=== PATIENT | male | born 1950 | race Caucasian/White ===

== ENCOUNTER → 2021-04-13 | Outpatient (CLI) | payer OTHER ==
[~2021-04-13] VITALS: Ht 175.3 cm; Wt 86.2 kg
[~2021-04-13] MED LIST: ARICEPT10 M1 PO; DESYREL150 MG PO; FOLIC ACID1 MG PO; LEVO-T25 MCG PO; LEXAPRO20 MG PO; LUNESTA3 MG PO; MEMANTINE HCL E14 MG PO; METHYLPHENIDATE20 M1 PO; NORVASC10 MG PO; POTASSIUM99 M1 PO; REQUIP 1 MG TABL1 M1 PO; SUPER THERAVIT1 EACH PO; TRAMADOL HCL100 M1 PO; TYLENOL PM EX-1 EACH PO; VIAGRA100 MG PO; VITAMIN B COMP1 EACH PO
--- NOTE | ~2021-04-13 | HPC ---
[facility] [place] [address] PAIN MANAGEMENT CONSULTATION Name: BOO HARDY Room #: REG [facility]..#: [id number] Admission: 04/13/21 Attend Phys: Mikael Sharma DO Discharge: Date of : 50 Report #: [id number] THIS REPORT FOR: cc: Jefferson Lovelace MD, James A. MD Johnson, James E. DO ~ DOC #: [id number] cc: MD Mikael Davis, DATE OF SERVICE: 04/13/2021 REFERRING PHYSICIAN: Dr. Jefferson Lovelace. PRIMARY CARE PHYSICIAN: Dr. Mikael Dove. CHIEF COMPLAINT: Low back pain, left lower extremity pain with paresthesias. HISTORY OF PRESENT ILLNESS: As you know, the patient is a 70-year-old male who reports acute onset of low back pain, left lower extremity pain and paresthesia that began on 02/27/2021. The patient reports he has had longstanding back issues undergoing partial diskectomy in [place] about 15-17 years ago. The patient states that on 02/27/2021, he awoke with intense left hip pain. He locates the pain directly over the left hip, buttock and anterior thigh area. He states his pain has improved significantly with lying down, but does note exacerbation of symptoms when lying on his left side. When he is lying on his back his pain is completely resolved. He has some muscle cramping in the lower extremities, which prompted his primary care physician to send the patient on to see neurosurgery. The patient was seen by neurosurgery, Dr. Jefferson Lovelace and advised that surgical options may be necessary, but requested a more conservative treatment approach initially. The patient was subsequently referred to our clinic to discuss treatment options. The patient reports today pain is periodic and intermittent. He describes the pain as more of a cramping, aching, sharp, stabbing sensation. He places current pain score 3/10, daily average at 6/10, worst pain has been is 8/10. The patient states that sitting and getting up exacerbate symptoms consistent with a left hip pathology. He states that lying on his back, rest, relaxation, heat and cold compresses tend to improve pain. He has been referred to our service to discuss treatment options for suspected combination of lumbar radiculopathy had intrinsic hip pathology. PAST MEDICAL HISTORY: 1. ADHD. 2. Depression. 3. Hyperglycemia. 4. Hypertension. [address] [address] PAIN MANAGEMENT CONSULTATION Name: BOO HARDY Room #: REG CLI Justin#: [id number] Admission: 04/13/21 Attend Phys: Mikael Sharma DO Discharge: Date of : 50 Report #: [id number] 5. Hypogonadism. 6. Insomnia. 7. Prediabetes. 8. Ulnar nerve palsy. 9. Chronic liver disease. 10. Thyroid dysfunction. 11. Obesity. 12. Early dementia. 13. Peripheral neuropathy. 14. History of stroke. PAST SURGICAL HISTORY: 1. L4-L5 partial diskectomy. 2. Ulnar nerve transposition. 3. Cholecystectomy. SOCIAL HISTORY: The patient denies tobacco, alcohol or IV illicit drug use. 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 He is not in litigation in regards to pain. He is unaccompanied at today's visit. REVIEW OF SYSTEMS: Positive for wearing corrective eyewear, hearing loss with tinnitus, changes in bowel movements, constipation, interspersed with loose bowels, nocturia, numbness and tingling sensations, history of stroke with no significant residual deficits, nervousness, depression, insomnia. All other review of systems negative per 12-point review of systems other than those listed in history of present illness. Pain impact score 36/70, moderate interference of daily activities secondary to pain. ALLERGIES: LISINOPRIL. CURRENT MEDICATIONS: Tramadol 100 mg 4 times a day, Viagra 100 mg p.r.n., Lunesta 3 mg p.o. at bedtime, trazodone 150 mg p.o. at bedtime, methylphenidate 20 mg 3 times a day, multivitamin one tab per day, potassium gluconate 99 mg per day, acetaminophen p.r.n., levothyroxine 25 mcg per day, Lexapro 20 mg once a day, benazepril 10 mg once a day, amlodipine 10 mg once a day, ropinirole 1 mg p.o. at bedtime, Namenda 14 mg per day, folic acid 1 mg per day, vitamin B complex one tab per day. IMAGING: MRI of the lumbar spine obtained 04/01/2021 shows mild circumferential disk bulge at L4-L5, most marked posterolaterally to the left. Small changes of the lateral recess at the L4-L5 level with extruded fragment. Synovial cyst projecting into the spinal canal left L4-L5 zygapophyseal joint. There is a left L4-L5 lateral recess, mild broad-based L2-L3 disk bulge postsurgical [facility] [address] [place] [address] PAIN MANAGEMENT CONSULTATION Name: BOO HARDY Room #: REG [facility] Anderson#: [id number] Admission: 04/13/21 Attend Phys: Mikael Sharma DO Discharge: Date of : 50 Report #: [id number] changes noted. PQRS: The patient has known arthritic changes of the lumbar spine. No rheumatoid arthritis. Placing pain intensity at 3/10, not a fall risk, has not had a fall in last 3 months. He is not on blood thinners, but is treated for hypertension. He is not on chronic opioids, but does have moderate to high opioid risk factor based on our assessment tool. Pain impact is 36/70, moderate interference of daily activities secondary to pain. PHYSICAL EXAMINATION: VITAL SIGNS: Blood pressure 134/103, pulse 105, respiratory rate 20, unlabored. The patient 97% on room air. Height 5 feet 9 inches tall, weight 190 pounds, BMI calculated 28.0. GENERAL: Well-developed, well-nourished, well-hydrated 70-year-old male appearing stated age, pain is rated anywhere from 3-5/10 depending on activity. HEENT: Normocephalic, atraumatic. Pupils equal, round and responsive. The patient deemed a good historian. He is wearing a mask in compliance with COVID-19 regulations. LUNGS: Appear clear. No wheeze or rhonchi are appreciable rales. CARDIOVASCULAR: Appears regular. EXTREMITIES: Show no clubbing, no cyanosis and no appreciable edema. MUSCULOSKELETAL: Lower extremity strength appears symmetrical 5/5 intact to light touch from L1 through S2 dermatomes. Seated straight leg raising negative. Supine straight leg raising positive on the right. Fabere's test is negative. Modified Gaenslen's positive for axial back pain. Ankle clonus negative. Babinski is negative. Gait mildly antalgic favoring left lower extremity over right. Deep tendon reflexes appear symmetrical, but diminished bilaterally at patella and Achilles. ASSESSMENT: 1. Symptomatic lumbar radiculopathy. 2. Displacement of lumbar intervertebral disk with radiculopathy. 3. 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 4. Lumbar degeneration. 5. Facet arthropathy of the lumbar spine. 6. Chronic intractable pain. PLAN: 1. Based on today's physical exam, the history the patient has provided, the description the patient uses in regards to pain as well as the location of symptoms, the likely source of the patient's pain is lumbar radiculopathy. The patient has been referred to our clinic by his neurosurgeon to trial conservative treatment options before looking toward surgical options if necessary. The patient is agreeable with that plan. We discussed with the patient today, the treatment options, we have available to treat lumbar radiculopathy. We discussed the following with the patient today. [address] [address] PAIN MANAGEMENT CONSULTATION Name: BOO HARDY Room #: REG CL Justin#: [id number] Admission: 04/13/21 Attend Phys: Mikael Sharma DO Discharge: Date of : 50 Report #: [id number] We discussed physical therapy, stretching exercises and traction techniques as a treatment course. We discussed medication management utilizing a consistent baseline neuropathic pain medications such as amitriptyline, nortriptyline, Cymbalta, Lyrica or gabapentin. We discussed lumbar epidural injections under fluoroscopic guidance for which the patient was referred to our clinic. We also discussed surgical options including dorsal column stimulator and ultimately surgical decompression of the L4-L5 level. After reviewing risks and benefits of all proposed treatment options, the patient chose to move forward with a lumbar epidural injection under fluoroscopic guidance. 2. The patient was advised risks and benefits of a lumbar epidural injection. These risks include but are not necessarily limited to bleeding, bruising, infection, worsening pain, no relief of pain, also risk of temporary or permanent muscle weakness, temporary or permanent nerve damage, possible paralysis, post-dural puncture headache and . The patient states understood and wished to proceed. 3. No medication changes made at today's visit. The patient will continue current medical therapy as prior prescribed. 4. We plan to see the patient back in followup visit in one month. At that time, review the efficacy of today's epidural injection and determine next in a series of epidural injections might be recommended. 5. We wish to thank Dr. Lovelace for the referral of this patient to our clinic. We will keep you apprised of his response to treatment as we address lumbar radicular symptoms. Again, we wish to thank you for the opportunity to see the patient in consultation. PROCEDURE NOTE: DESCRIPTION OF PROCEDURE: L5-S1 left paramedian epidural steroid injection under fluoroscopic guidance. This is the first procedure of the first series that the patient is undergoing. After obtaining written consent, the patient was taken back to the fluoroscopy suite, placed in a prone position with pillow under the abdomen to decrease lumbar lordosis. The skin overlying the lumbosacral area was then prepped and draped in aseptic fashion. The L5-S1 vertebral interspace was then identified by AP fluoroscopy. The skin and subcutaneous tissue overlying the target site of injection was anesthetized with 3 mL 1% lidocaine. A 20-gauge 3-1/2 inch Tuohy needle was then advanced under fluoroscopic guidance towards the epidural space using a left paramedian approach. The epidural space was identified using loss of resistance to air technique. After negative aspiration for heme or cerebrospinal fluid, a total of 1 mL of Omnipaque was injected. A lumbar epidurogram was confirmed using both AP and lateral fluoroscopy. After negative aspiration for heme or cerebrospinal fluid, 5 mL of a solution containing 2 mL 40 mg per mL 80 mg total triamcinolone along with 3 [facility] [address] [place] [address] PAIN MANAGEMENT CONSULTATION Name: BOO HARDY Room #: REG CLI M.R.#: [id number] Admission: 04/13/21 Attend Phys: Mikael Sharma DO Discharge: Date of : 50 Report #: [id number] mL of lidocaine 1% was injected in increments. Contrast spread was noted posterior epidural space. The needle was then retracted approximately half way and needle tract flushed with 1 mL of 1% lidocaine. Needle was then removed. There were no apparent sensory or motor deficits in the lower extremity following the procedure. A sterile bandage was placed over the injection site. The heart rate, pulse, oximetry and blood pressure were continuously monitored after the procedure. There were no apparent complications. The patient tolerated the procedure well and was carefully escorted to the recovery room in stable condition. There were no apparent complications. After meeting discharge criteria, the patient was then discharged home. DO MOISES Blackmon/NORA By: [id number] Mikael Sharma DO /nt
[2021-04-13 08:48] VITALS: BP 134/103
--- NOTE | 2021-04-13 09:10 | NUR ---
Pain Clinic Assessment: 1. History of Osteoarthritis: Not Applicable History of Rheumatoid Arthritis: Not Applicable 2. Height: 5 ft. 9 in. 175.3 cm. Weight: 190.0 lb. oz. 86.184 kg. Patient's BMI: 28.0 3. Vital Signs: BP: 134/103 Pulse: 105 Resp: 20 Temp: 02 Sat: 97 ECG Mon: 4. Pain Intensity: 3 5. Fall Risk: Dizziness: N Needs help standing or walking: N Fallen in the last 3 months: N Fall risk comments: 6. Patient on Blood Thinner: None 7. History of Hypertension: Y 8. Opioid Therapy greater than 6 weeks: N Opiate Contract Signed: 9. Risk Assessment Tool Provided: 6 MODERATE RISK 10. Functional Assessment Tool: 36/70 11. Recreational Drug Use: Current within past 3 mos Drug Type: MARIJUANA Tobacco Use: Former Smoker Tobacco Type: Cigarettes Amount or Packs/day: How Many Years: Alcohol Use: No Frequency: Quant:
== END | disposition home or self-care (01) ==
LOC: PAIN 07:54
PROVIDERS: ATTEND Anesthesiology Pain Medicine
DX: M51.16 Intervertebral disc disorders with radiculopathy, lumbar region (principal); M47.27 Other spondylosis with radiculopathy, lumbosacral region; M48.061 Spinal stenosis, lumbar region without neurogenic claudication; G89.29 Other chronic pain; I10 Essential (primary) hypertension; E07.9 Disorder of thyroid, unspecified; F32.9 Major depressive disorder, single episode, unspecified; M19.90 Unspecified osteoarthritis, unspecified site; E29.1 Testicular hypofunction; G47.00 Insomnia, unspecified; K76.9 Liver disease, unspecified; E66.9 Obesity, unspecified; F03.90 Unspecified dementia, unspecified severity, without behavioral disturbance, psychotic disturbance, mood disturbance, and anxiety; G62.9 Polyneuropathy, unspecified; Z98.890 Other specified postprocedural states; Z79.899 Other long term (current) drug therapy; Z86.73 Personal history of transient ischemic attack (TIA), and cerebral infarction without residual deficits; Z90.49 Acquired absence of other specified parts of digestive tract; Z88.8 Allergy status to other drugs, medicaments and biological substances

== ENCOUNTER → 2021-05-25 | Outpatient (CLI) | payer OTHER ==
[~2021-05-25] VITALS: Ht 175.3 cm; Wt 86.5 kg
[2021-05-25 09:15] VITALS: BP 109/70
--- NOTE | 2021-05-25 09:20 | NUR ---
Pain Clinic Assessment: 1. History of Osteoarthritis: Not Applicable History of Rheumatoid Arthritis: Not Applicable 2. Height: 5 ft. 9 in. 175.3 cm. Weight: 190.6 lb. oz. 86.456 kg. Patient's BMI: 28.1 3. Vital Signs: BP: 109/70 Pulse: 107 Resp: 16 Temp: 02 Sat: 97 ECG Mon: 4. Pain Intensity: 6 5. Fall Risk: Dizziness: N Needs help standing or walking: N Fallen in the last 3 months: N Fall risk comments: 6. Patient on Blood Thinner: None 7. History of Hypertension: Y 8. Opioid Therapy greater than 6 weeks: N Opiate Contract Signed: 9. Risk Assessment Tool Provided: 6 MODERATE RISK 10. Functional Assessment Tool: 11. Recreational Drug Use: Current within past 3 mos Drug Type: marijuana Tobacco Use: Former Smoker Tobacco Type: Amount or Packs/day: How Many Years: Alcohol Use: No Frequency: Quant:
--- NOTE | 2021-05-26 08:00 | HPC ---
[facility] [place] [address] PAIN MANAGEMENT CONSULTATION Name: BOO HARDY Room #: REG [facility] M.R.#: [id number] Admission: 05/25/21 Attend Phys: Mikael Sharma DO Discharge: Date of : 50 Report #: [id number] THIS REPORT FOR: cc: Jefferson Lovelace MD, James A. MD Johnson, James E. DO ~ DOC #: [id number] cc: MD Mikael Davis, DATE OF SERVICE: 05/25/2021 CHIEF COMPLAINT: Low back pain, left lower extremity pain with paresthesias. HISTORY OF PRESENT ILLNESS: As you know, the patient is a very pleasant 70-year-old male who returns today in followup visit with pain, recurrence of 6/10. He describes the pain as intermittent cramping, aching, sharp, stabbing, numbness and tingling. Places pain again at 6/10. He states pain is exacerbated with standing, sitting and lying down, improves with repositioning. The patient underwent a lumbar epidural injection in March, which provided 80% improvement in overall pain. Unfortunately, his symptoms have reoccurred. There has been no inciting injury or trauma. The patient returns today in followup visit reporting recurrence of symptoms that have not been alleviated with changes in daily activity. He returns for the second in the series of lumbar epidural injections. ALLERGIES: LISINOPRIL. CURRENT MEDICATIONS: Tramadol 100 mg 4 times a day, Viagra 100 mg p.r.n., Lunesta 3 mg p.o. at bedtime, trazodone 150 mg p.o. at bedtime, multivitamin 1 tab per day, potassium gluconate 99 mg per day, acetaminophen p.r.n., levothyroxine 25 mcg per day, Lexapro 20 mg once a day, benazepril 10 mg once a day, amlodipine 10 mg per day, ropinirole 1 mg p.o. at bedtime, Namenda 14 mg per day, folic acid 1 mg per day, vitamin B complex 1 tab per day. SOCIAL HISTORY: The patient denies tobacco, alcohol or IV or illicit drug use. 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 He is unaccompanied at today's visit. IMAGING: No new imaging available. PQRS: The patient has known arthritic changes in lumbar spine. No rheumatoid arthritis. He is placing pain intensity today at 6/10. He is not a fall risk, has not had a fall in last 3 months. He is not on blood thinners, but is treated for hypertension. He is on chronic opioids as a moderate to high opioid addiction potential based on assessment tool. Pain impact remains 36/70, moderate interference of daily activities secondary to pain. [address] [address] PAIN MANAGEMENT CONSULTATION Name: BOO HRADY [facility] [id number] Admission: 05/25/21 Attend Phys: Mikael Sharma DO Discharge: Date of : 50 Report #: [id number] PHYSICAL EXAMINATION: VITAL SIGNS: Blood pressure 109/70, pulse is 107, respiratory rate 16 and unlabored. The patient is 97% on room air. Height 5 feet 9 inches tall, weight 190.6 pounds, BMI calculated 28.1. GENERAL: Well-developed, well-nourished, well-hydrated 70-year-old male appearing stated age, pain is rated today at 6/10. HEENT: Normocephalic, atraumatic. EXTREMITIES: Show no clubbing, no cyanosis and no edema. MUSCULOSKELETAL: Lower extremity strength remains symmetrical again today 5/5. Seated straight leg raising negative. Supine straight leg raising mildly positive on the right at about 60-degree angle. Ankle clonus negative. Babinski is negative. Gait appears normal. Muscle bulk and tone is equal and symmetrical in lower extremities. ASSESSMENT: 1. Symptomatic lumbar radiculopathy. 2. Displacement of lumbar intervertebral disk with radiculopathy. 3. 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 4. Lumbar degeneration. 5. Facet arthropathy, lumbar spine. 6. Chronic intractable pain. PLAN: 1. The patient returns today in followup visit having noted excellent benefit with the lumbar epidural injection provided at our last visit. He reports 80% improvement in overall pain lasting until just recently where he has had a slow and progressive return of symptoms, no inciting injury or trauma. He is very pleased with response to the first injection. Returning today in followup visit to undergo next in the series. The patient has been advised of the risks and benefits of this procedure, states understood and wished to proceed. 2. No medication changes made at today's visit. The patient will continue current medical therapy as prior prescribed. 3. Plan is to see the patient back in followup visit on an as needed basis for the next in the series of lumbar epidural injections. We are again hopeful the patient will see good and prolonged benefit with today's procedure. PROCEDURE NOTE: DESCRIPTION OF PROCEDURE: L5-S1 left parasagittal epidural steroid injection under fluoroscopic guidance. This is the second procedure of the first series that the patient is undergoing. After obtaining written consent, the patient was taken back to the fluoroscopy suite, placed in a prone position with pillow under the abdomen to decrease lumbar lordosis. The skin overlying the lumbosacral area was then prepped and [facility] [address] [place] [address] PAIN MANAGEMENT CONSULTATION Name: BOO HARDY Room #: REG BECKY Moira.#: [id number] Admission: 05/25/21 Attend Phys: Mikael Sharma DO Discharge: Date of : 50 Report #: [id number] draped in aseptic fashion. The L5-S1 vertebral interspace was then identified by AP fluoroscopy. The skin and subcutaneous tissue overlying the target site of injection was anesthetized with 3 mL 1% lidocaine. A 20-gauge 3-1/2 inch Tuohy needle was then advanced under fluoroscopic guidance towards the epidural space using a left parasagittal approach. The epidural space was identified using loss of resistance to air technique. After negative aspiration for heme or cerebrospinal fluid, a total of 1 mL of Omnipaque was injected. A lumbar epidurogram was confirmed using both AP and lateral fluoroscopy. After negative aspiration for heme or cerebrospinal fluid, 5 mL of a solution containing 2 mL 40 mg per mL 80 mg total triamcinolone along with 3 mL of lidocaine 1% was injected in increments. Contrast spread was noted posterior epidural space. The needle was then retracted approximately half way and needle tract flushed with 1 mL of 1% lidocaine. Needle was then removed. There were no apparent sensory or motor deficits in the lower extremity following the procedure. A sterile bandage was placed over the injection site. The heart rate, pulse, oximetry and blood pressure were continuously monitored after the procedure. There were no apparent complications. The patient tolerated the procedure well and was carefully escorted to the recovery room in stable condition. There were no apparent complications. After meeting discharge criteria, the patient was then discharged home. Mikael Sharma DO JEJ/ALETHA <ELECTRONICALLY SIGNED> By: Mikael Sharma DO 05/26/21 [id number] [id number] Mikael Sharma DO /nt
== END | disposition home or self-care (01) ==
LOC: PAIN 08:55
PROVIDERS: ATTEND Anesthesiology Pain Medicine
DX: M51.16 Intervertebral disc disorders with radiculopathy, lumbar region (principal); M48.061 Spinal stenosis, lumbar region without neurogenic claudication; M47.27 Other spondylosis with radiculopathy, lumbosacral region; M47.26 Other spondylosis with radiculopathy, lumbar region; G89.29 Other chronic pain; I10 Essential (primary) hypertension; Z98.890 Other specified postprocedural states; Z79.899 Other long term (current) drug therapy; Z68.28 Body mass index [BMI] 28.0-28.9, adult; Z79.891 Long term (current) use of opiate analgesic; Z88.8 Allergy status to other drugs, medicaments and biological substances

== ENCOUNTER → 2021-07-13 | Outpatient (CLI) | payer OTHER ==
[~2021-07-13] VITALS: Ht 175.3 cm; Wt 85.8 kg
[~2021-07-13] MED LIST changes: +B-12500 MCG PO; +RED YEAST RICE600 M1 PO; +RESVERATROL50 MG PO; +TRAMADOL 50 MG50 MG PO
[2021-07-13 08:46] VITALS: BP 120/82
--- NOTE | 2021-07-13 08:59 | NUR ---
Pain Clinic Assessment: 1. History of Osteoarthritis: Not Applicable History of Rheumatoid Arthritis: Not Applicable 2. Height: 5 ft. 9 in. 175.3 cm. Weight: 189.2 lb. oz. 85.821 kg. Patient's BMI: 27.9 3. Vital Signs: BP: 120/82 Pulse: 100 Resp: 20 Temp: 02 Sat: 97 ECG Mon: 4. Pain Intensity: 4 5. Fall Risk: Dizziness: N Needs help standing or walking: N Fallen in the last 3 months: N Fall risk comments: 6. Patient on Blood Thinner: None 7. History of Hypertension: Y 8. Opioid Therapy greater than 6 weeks: N Opiate Contract Signed: 9. Risk Assessment Tool Provided: 6 MODERATE RISK 10. Functional Assessment Tool: 36/ 11. Recreational Drug Use: Current within past 3 mos Drug Type: MEDICAL THC Tobacco Use: Former Smoker Tobacco Type: Amount or Packs/day: How Many Years: Alcohol Use: No Frequency: Quant:
--- NOTE | 2021-07-14 10:47 | HPC ---
[facility] [place] [address] PAIN MANAGEMENT CONSULTATION Name: BOO HARDY Room #: REG [facility] M.R.#: [id number] Admission: 07/13/21 Attend Phys: Mikael Sharma DO Discharge: Date of : 50 Report #: [id number] THIS REPORT FOR: cc: Jefferson Lovelace MD, James A. MD Johnson, James E. DO ~ cc: Jefferson Lovelace MD DATE OF SERVICE: 07/13/2021 CHIEF COMPLAINT: Low back pain, left lower extremity pain and paresthesias. HISTORY OF PRESENT ILLNESS: As you know, the patient is a very pleasant 71-year-old male returning in followup visit to undergo the next in the series of lumbar epidural injections. The original epidural injection that was provided gave 90% improvement in overall pain lasting for nearly 5 weeks. Unfortunately, the patient's symptoms have begun to return, though to a much lesser level. He is placing a pain score at 4/10. He describes the pain as intermittent, cramping, aching, sharp and stabbing when describing symptoms. He returns today in followup visit requesting a lumbar epidural injection under fluoroscopic guidance. He has also requested that we provide some form of pain medications. He continues to utilize medical marijuana, which precludes opioid medications. He returns to discuss possible addition of tramadol. ALLERGIES: LISINOPRIL. CURRENT MEDICATIONS: Tramadol 100 mg 4 times a day, Viagra 100 mg p.r.n., Lunesta 3 mg p.o. at bedtime, trazodone 150 mg p.o. at bedtime, multivitamin 1 tab per day, potassium gluconate 99 mg per day, acetaminophen 325 mg t.i.d., levothyroxine 25 mcg daily, Lexapro 20 mg per day, benazepril 10 mg per day, amlodipine 10 mg per day, ropinirole 1 mg once a day, Namenda 14 mg per day, folic acid 1 mg per day, vitamin B complex 1 tab per day. SOCIAL HISTORY: The patient denies tobacco, alcohol or IV or illicit drug use. 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 He is working, not receiving workmen's compensation nor is he trying to obtain disability benefits. He does report that he has been utilizing medical marijuana. IMAGING: No new imaging available. PQRS: The patient has known arthritic changes of lumbar spine. No rheumatoid arthritis. He is placing pain intensity today at around 4/10, not a fall risk, has not had a fall in last 3 months. He is not on blood thinners, but is treated for hypertension. He is on opioids and has a moderate to severe opioid addiction potential based on assessment tool and his concomitant use of tetrahydrocannabinoid. Pain impact 36/70, moderate interference of daily activities secondary to pain. [address] [address] PAIN MANAGEMENT CONSULTATION Name: BOO HARDY Room #: REG CLI [facility].#: [id number] Admission: 07/13/21 Attend Phys: Mikael Sharma DO Discharge: Date of : 50 Report #: [id number] PHYSICAL EXAMINATION: VITAL SIGNS: Blood pressure 120/82, pulse is 100, respiratory rate 20, unlabored. The patient 97% on room air. Height 5 feet 9 inches tall, weight 189.2 pounds, BMI calculated 27.9. GENERAL: Well-developed, well-nourished, well-hydrated 71-year-old male appearing stated age, pain is rated today 4/10. HEENT: Normocephalic, atraumatic. Pupils equal, round and responsive. EXTREMITIES: Show no clubbing, no cyanosis. No appreciable edema. MUSCULOSKELETAL: Lower extremity strength equal and symmetrical, 5/5. Seated straight leg raising negative. Supine straight leg raising positive. Muscle bulk and tone equal and symmetrical in lower extremities. ASSESSMENT: 1. Symptomatic lumbar radiculopathy. 2. Displacement of lumbar intervertebral disk with radiculopathy. 3. Lateral recess stenosis of lumbar spine. 4. Lumbar degeneration. 5. Facet arthropathy of lumbar spine. 6. Chronic intractable pain. PLAN: 1. The patient returns today in followup visit to undergo next in the series of lumbar epidural injections. He received excellent benefit with the initial injection up to 90% improvement in overall pain. The patient has been advised the risks and benefits of the procedure, states understood and wished to proceed. The patient denies any injury or trauma that led to the symptom reoccurrence. He is now placing pain at a 4/10 much improved from our prior evaluation. 2. The patient has requested a prescription of pain medication. Given the patient is currently utilizing medical marijuana, this precludes us from utilizing opioid medications for pain control. We would be willing to provide tramadol with the understanding that this could be only used on a p.r.n. basis. I have sent a prescription of #60 tablets with the 50 mg dose to take on an as needed basis. He is not to utilize more than 3 tablets in a given day. Prescription sent via e-scribe to local pharmacy. 3. We will see the patient back in followup visit on an as needed basis for the third in the series of lumbar epidural injections. We are hopeful the patient will once again see good and prolonged benefit with today's epidural injection. PROCEDURE NOTE DESCRIPTION OF PROCEDURE: L4-L5 left paramedian epidural steroid injection under fluoroscopic guidance. This is the third procedure of the first series that the patient is undergoing. [facility] [address] [place] [address] PAIN MANAGEMENT CONSULTATION Name: BOO HARDY [id number] Admission: 07/13/21 Attend Phys: Mikael Sharma DO Discharge: Date of : 50 Report #: [id number] After obtaining written consent, the patient was taken back to the fluoroscopy suite, placed in a prone position with pillow under the abdomen to decrease lumbar lordosis. The skin overlying the lumbosacral area was then prepped and draped in aseptic fashion. The L4-5 vertebral interspace was then identified by AP fluoroscopy. The skin and subcutaneous tissue overlying the target site of injection was anesthetized with 3 mL 1% lidocaine. A 20-gauge 3.5-inch Tuohy needle was then advanced under fluoroscopic guidance towards the epidural space using a left paramedian approach. The epidural space was identified using loss of resistance to air technique. After negative aspiration for heme or cerebrospinal fluid, a total of 1 mL of Omnipaque was injected. A lumbar epidurogram was confirmed using both AP and lateral fluoroscopy. After negative aspiration for heme or cerebrospinal fluid, 5 mL of a solution containing 2 mL 40 mg per mL 80 mg total triamcinolone along with 3 mL of lidocaine 1% was injected in increments. Contrast spread was noted posterior epidural space. The needle was then retracted approximately half way and needle tract flushed with 1 mL of 1% lidocaine. Needle was then removed. There were no apparent sensory or motor deficits in the lower extremity following the procedure. A sterile bandage was placed over the injection site. The heart rate, pulse, oximetry and blood pressure were continuously monitored after the procedure. There were no apparent complications. The patient tolerated the procedure well and was carefully escorted to the recovery room in stable condition. There were no apparent complications. After meeting discharge criteria, the patient was then discharged home. <ELECTRONICALLY SIGNED> By: Mikael Sharma DO 07/14/21 [id number] Mikael Sharma DO /nt
== END | disposition home or self-care (01) ==
LOC: PAIN 06:37
PROVIDERS: ATTEND Anesthesiology Pain Medicine
DX: M51.16 Intervertebral disc disorders with radiculopathy, lumbar region (principal); M48.061 Spinal stenosis, lumbar region without neurogenic claudication; M47.26 Other spondylosis with radiculopathy, lumbar region; G89.29 Other chronic pain; I10 Essential (primary) hypertension; Z98.890 Other specified postprocedural states; Z79.899 Other long term (current) drug therapy; Z88.8 Allergy status to other drugs, medicaments and biological substances